=== PATIENT | female | born 1950 | race Caucasian/White ===

== ENCOUNTER 2017-07-08 16:04 | Observation (INO) | payer OTHER ==
[~2017-07-08] VITALS: Ht 167.6 cm; Wt 70.9 kg
[~2017-07-08 16:04] MED LIST: AMITIZA24 MICROGR PO; ANALGESIC325 MG PO; ASPIR-TRIN325 M1 PO; ATORVASTATIN CA40 MG PO; AUGMENTIN875 MG PO; BACTRIM,SEPT1 TABLET PO; CALCIUM 500 MG1 EACH PO; CALCIUM 600 +1 EAC1 PO; CONSTULOSE10 GM/15 M PO; DICYCLOMINE HCL20 MG PO; DURAGESIC12 MCG TD; ELAVIL25 MG PO; FLONASE ALLERG9.9 ML BOTH NARES; FLOVENT 11120 INHALA IH; IMITREX100 MG PO; IMITREX50 MG PO; INCRUSE ELLI62.5 MCG IH; LIPITOR40 MG PO; MIRALAX17 GM PO; MIRALAX255 GM PO; MS CONTIN,ORAMO15 M1 PO; NEURONTIN100 MG PO; NEURONTIN300 MG PO; NOHOMEMEDS; OMEPRAZOLE20 M2 PO; OMEPRAZOLE40 M1 PO; PREVACID30 MG PO; PROCTOFOAM-HC10 GM PR; Prevacid PO; Proventil,Ventolin H IH; REFRESH LI300 DROP/1 BOTH EYES; SPIRIVA RESPIMAT4 GM IH; SPIRIVA1 INHALATI IH; SUMATRIPTAN SUC50 MG PO; VENLAFAXINE HCL75 MG PO; VENTOLIN HFA18 GM IH; Vitamin B Complex PO; ZOLOFT50 MG PO; ZYBAN 150 MG T150 MG PO
[2017-07-08 16:29] LABS: HEMATOCRIT 44.7 % (36.0-46.0); MCH 29.5 PG (29.0-34.0); MCV 86.6 FL (83-99); PLATELET COUNT 258 K/uL (156-360); RBC DIS.WIDTH-CV 11.9 % (11.8-14.6); RBC DIS.WIDTH-SD 38.2 % (39-53); RED BLOOD COUNT 5.16 M/uL (3.80-5.20); WHITE BLOOD COUNT 7.5 K/uL (4.1-10.2)
[2017-07-08 16:37] LABS: CHLORIDE 109 mEq/L (99-109); POTASSIUM 4.2 mEq/L (3.7-5.4); SODIUM 145 mEq/L (136-147)
[2017-07-08 16:39] LABS: GLUCOSE 94 mg/dL (70-99)
[2017-07-08 16:40] LABS: ANION GAP 11 MEQ/L (2-14)
[2017-07-08 16:42] LABS: GFR ESTIMATE (CALCULATED) > 59 mL/min/
[2017-07-08 16:43] LABS: UREA NITROGEN (BUN) 11 mg/dL (9-23)
[2017-07-08 16:49] LABS: TROP-I INTERPRETATION NEGATIVE; TROPONIN-I < 0.01 ng/mL (0.0-0.30)
[2017-07-08 17:57] LABS: TOTAL BILIRUBIN 0.7 mg/dL (0.0-1.0)
[2017-07-08 17:58] LABS: ALKALINE PHOSPHATASE 102 IU/L (3-129)
[2017-07-08 18:01] LABS: DIRECT BILIRUBIN 0.3 mg/dL (0.0-0.3)
[2017-07-08 18:02] LABS: LIPASE 20 U/L (1.0-51.0)
[2017-07-08] MEDS ORDERED: SYMBICORT60 INHALAT IH (19:37)
[2017-07-08] MEDS ORDERED: MELOXICAM15 MG PO (19:38)
[2017-07-08] MEDS ORDERED: RAZADYNE ER24 MG PO (19:38)
[2017-07-08] MEDS ORDERED: ARICEPT5 MG PO (19:38)
[2017-07-08 20:00] LABS: TROP-I INTERPRETATION NEGATIVE; TROPONIN-I < 0.01 ng/mL (0.0-0.30)
[2017-07-08 21:11] VITALS: BP 143/63
[2017-07-09 00:05] VITALS: BP 125/57
[2017-07-09 04:03] VITALS: BP 103/58
[2017-07-09 05:55] LABS: HEMATOCRIT 38.9 % (36.0-46.0); MCH 29.5 PG (29.0-34.0); MCHC 33.7 G/DL (30.0-36.0); MCV 87.6 FL (83-99); MEAN PLAT.VOLUME 9.3 uM^3 (9.5-12.4); PLATELET COUNT 225 K/uL (156-360); RBC DIS.WIDTH-CV 12.2 % (11.8-14.6); RBC DIS.WIDTH-SD 39.3 % (39-53); RED BLOOD COUNT 4.44 M/uL (3.80-5.20); WHITE BLOOD COUNT 7.2 K/uL (4.1-10.2)
[2017-07-09 06:16] LABS: ANION GAP 8 MEQ/L (2-14); CHLORIDE 107 MEQ/L (99-109); GFR ESTIMATE (CALCULATED) > 59 mL/min/; GLUCOSE 96 mg/dL (70-99); POTASSIUM 3.5 MEQ/L (3.7-5.4); SAMPLE HEMOLYSIS CHECK 0; SAMPLE ICTERIC CHECK 0; SAMPLE LIPEMIA CHECK 0; SODIUM 142 MEQ/L (136-147); UREA NITROGEN (BUN) 13 mg/dL (9-23)
[2017-07-09 06:20] LABS: TROP-I INTERPRETATION NEGATIVE; TROPONIN-I 0.01 ng/mL (0.0-0.30)
[2017-07-09 07:30] VITALS: BP 140/73
[2017-07-09 11:24] VITALS: BP 180/83
[2017-07-09 13:00] LABS: TROP-I INTERPRETATION NEGATIVE; TROPONIN-I < 0.01 ng/mL (0.0-0.30)
[2017-07-09 14:00] VITALS: BP 138/70
[2017-07-09] MEDS ORDERED: PROMETHAZINE HC25 M1 PO (14:46)
[2017-07-09] MEDS ORDERED: PREDNISONE10 MG PO (14:52)
[2017-07-09] MEDS ORDERED: ALPRAZOLAM0.25 M2 PO (14:52)
[2017-07-09] MEDS ORDERED: NICOTINE PATCH1 EAC2 TD (15:30)
== END 2017-07-09 15:59 | disposition home or self-care (01) ==
LOC: EME 16:04 → 5WEST 20:05 → EDOF 20:05 → ENRESERV 20:07 → 5WEST 20:51
PROVIDERS: Hospitalist; Physician Assistant
DX: R07.9 Chest pain, unspecified (principal); R03.0 Elevated blood-pressure reading, without diagnosis of hypertension; K21.9 Gastro-esophageal reflux disease without esophagitis; J44.9 Chronic obstructive pulmonary disease, unspecified; E78.5 Hyperlipidemia, unspecified; F17.210 Nicotine dependence, cigarettes, uncomplicated; Z82.49 Family history of ischemic heart disease and other diseases of the circulatory system; K22.70 Barrett's esophagus without dysplasia; M06.9 Rheumatoid arthritis, unspecified; K58.9 Irritable bowel syndrome, unspecified; Z79.82 Long term (current) use of aspirin; Z90.49 Acquired absence of other specified parts of digestive tract; Z90.710 Acquired absence of both cervix and uterus
CPT/HCPCS: 71020; 80048; 80076; 83690; 84484; 85027; 93005; 94640; 94640 76; 99202; 99281; 99285; G0378; J1644; J2405

== ENCOUNTER → 2018-04-19 | Outpatient (CLI) | payer MEDICARE, OTHER ==
[~2018-04-19] MED LIST changes: +ALPRAZOLAM0.25 M2 PO; +ARICEPT5 MG PO; +MELOXICAM15 MG PO; +NICOTINE PATCH1 EAC2 TD; +PREDNISONE10 MG PO; +PROMETHAZINE HC25 M1 PO; +RAZADYNE ER24 MG PO; +SYMBICORT60 INHALAT IH
== END | disposition home or self-care (01) ==
LOC: CDC
DX: Z01.810 Encounter for preprocedural cardiovascular examination (principal); G56.01 Carpal tunnel syndrome, right upper limb
CPT/HCPCS: 93000